=== PATIENT | female | born 1950 | race Caucasian/White ===

== ENCOUNTER → 2016-09-04 | Outpatient (CLI) | payer MEDICARE, OTHER ==
[~2016-09-04] MED LIST: ALLEGRA ALLERG180 MG PO; AMLODIPINE BESY10 MG PO; ARICEPT10 MG PO; ASPIR 8181 MG PO; ASPIRIN CHEWABL81 MG PO; BENTYL20 MG PO; CATAPRES 0.1MG0.1 MG PO; CEFTIN500 MG PO; COMBIVENT0.074 GM/I INH; COREG 3.125M3.125 MG PO; CYMBALTA60 MG PO; DIFLUCAN150 MG PO; EPIPEN 2-P0.3 MG/0.3 INJ; FEROSUL325 MG PO; FLONASE 0.05% N16 GM; FLUCONAZOLE150 MG PO; IBUPROFEN800 MG PO; IPRAT-ALBUT 0.5-3 ML INH; K-DUR TAB 10 M10 MEQ PO; K-DUR TAB 20 M20 MEQ PO; KEPPRA500 MG PO; KLONOPIN TAB 00.5 MG PO; LASIX40 MG PO; LISINOPRIL10 MG PO; LYRICA200 MG PO; MEDROL DOSEPAK 24 MG PO; MEDROL4 MG PO; MELATONIN5 M2 PO; MUCINEX600 MG PO; NITROSTAT 0.40.4 MG SL; OMEPRAZOLE20 M1 PO; OMNICEF 300 MG300 MG PO; OXYCODONE HCL15 MG PO; PROTONIX40 MG PO; RANITIDINE HCL300 MG PO; ROXICODONE15 MG PO; SYMBICORT 160-1 INHA INH; THERAGRAN M TAB1 EA PO; THERAPEUTIC M1 EAC1 PO; ZANTAC300 MG PO; ZESTRIL10 MG PO
== END ==
LOC: KOH-I 08:00
DX: F17.210 Nicotine dependence, cigarettes, uncomplicated (principal); R91.1 Solitary pulmonary nodule; J98.09 Other diseases of bronchus, not elsewhere classified
CPT/HCPCS: G0297

== ENCOUNTER 2016-09-27 10:52 | Inpatient (IN) | payer MEDICARE, OTHER ==
[~2016-09-27] VITALS: Ht 167.6 cm; Wt 50.8 kg
[~2016-09-27 10:52] MED LIST changes: -ASPIR 8181 MG PO; -CATAPRES 0.1MG0.1 MG PO; -COMBIVENT0.074 GM/I INH; -DIFLUCAN150 MG PO; -EPIPEN 2-P0.3 MG/0.3 INJ; -FLONASE 0.05% N16 GM; -IBUPROFEN800 MG PO; -K-DUR TAB 10 M10 MEQ PO; -KEPPRA500 MG PO; -LASIX40 MG PO; -MEDROL4 MG PO; -NITROSTAT 0.40.4 MG SL; -PROTONIX40 MG PO
[2016-09-27 11:54] LABS: HEMOGLOBIN 14.2 gm/dl (12.3-15.3); RED BLOOD COUNT 5.01 M/UL (4.00-5.10); WHITE BLOOD COUNT 2.6 K/UL (4.5-11.0)
[2016-09-27 12:21] LABS: BUN/CREATININE RATIO 23 (0-10)
[2016-09-27] MEDS ORDERED: ASPIR 8181 MG PO (17:01)
[2016-09-27] MEDS ORDERED: LASIX40 MG PO (17:01)
[2016-09-27] MEDS ORDERED: CATAPRES 0.1MG0.1 MG PO (17:02)
[2016-09-27] MEDS ORDERED: K-DUR TAB 10 M10 MEQ PO (17:03)
[2016-09-27] MEDS ORDERED: THERAPEUTIC M1 EAC1 PO (17:03)
[2016-09-27] MEDS ORDERED: PROTONIX40 MG PO (17:03)
[2016-09-27] MEDS ORDERED: IBUPROFEN800 MG PO (17:04)
[2016-09-27] MEDS ORDERED: COMBIVENT0.074 GM/I INH (17:05)
[2016-09-27] MEDS ORDERED: NITROSTAT 0.40.4 MG SL (17:05)
[2016-09-27] MEDS ORDERED: FLONASE 0.05% N16 GM (17:06)
[2016-09-27] MEDS ORDERED: EPIPEN 2-P0.3 MG/0.3 INJ (17:06)
[2016-09-28 06:42] LABS: HEMOGLOBIN 10.7 gm/dl (12.3-15.3); RED BLOOD COUNT 3.83 M/UL (4.00-5.10)
[2016-09-28 07:10] LABS: BUN/CREATININE RATIO 26 (0-10)
[2016-09-29 03:39] LABS: RED BLOOD COUNT 3.6 M/UL (4.00-5.10); WHITE BLOOD COUNT 9.6 K/UL (4.5-11.0)
[2016-09-29 04:03] LABS: BUN/CREATININE RATIO 32 (0-10)
[2016-09-30] MEDS ORDERED: KEPPRA500 MG PO (17:42)
[2016-10-01 05:05] LABS: HEMOGLOBIN 10.7 gm/dl (12.3-15.3); RED BLOOD COUNT 3.85 M/UL (4.00-5.10); WHITE BLOOD COUNT 7.4 K/UL (4.5-11.0)
[2016-10-01 05:17] LABS: BUN/CREATININE RATIO 30 (0-10)
[2016-10-02 05:09] LABS: HEMOGLOBIN 10.7 gm/dl (12.3-15.3); RED BLOOD COUNT 3.88 M/UL (4.00-5.10); WHITE BLOOD COUNT 5.7 K/UL (4.5-11.0)
[2016-10-02 05:21] LABS: BUN/CREATININE RATIO 34 (0-10)
[2016-10-04 04:55] LABS: BUN/CREATININE RATIO 41 (0-10)
[2016-10-04 04:58] LABS: HEMOGLOBIN 11.5 gm/dl (12.3-15.3); RED BLOOD COUNT 4.09 M/UL (4.00-5.10)
[2016-10-04 04:59] LABS: WHITE BLOOD COUNT 10.4 K/UL (4.5-11.0)
[2016-10-05 05:53] LABS: BUN/CREATININE RATIO 37 (0-10)
[2016-10-05] MEDS ORDERED: OMNICEF 300 MG300 MG PO ×2 (12:22→14:31)
[2016-10-05] MEDS ORDERED: DIFLUCAN150 MG PO (12:22)
[2016-10-05] MEDS ORDERED: MEDROL DOSEPAK 24 MG PO (12:23)
[2016-10-05] MEDS ORDERED: MEDROL4 MG PO (14:32)
== END 2016-10-05 15:20 | disposition home or self-care (01) | DRG 871 ==
LOC: ER1 10:52 → ZEROF 12:00 → M/S 12:00 → CCU 16:17 → M/S 10-01 21:30
PROVIDERS: Emergency Medicine; ADMIT Internal Medicine
DX: A41.51 Sepsis due to Escherichia coli [E. coli] (principal); J96.21 Acute and chronic respiratory failure with hypoxia; J18.9 Pneumonia, unspecified organism; J44.0 Chronic obstructive pulmonary disease with (acute) lower respiratory infection; J44.1 Chronic obstructive pulmonary disease with (acute) exacerbation; I50.32 Chronic diastolic (congestive) heart failure; R04.2 Hemoptysis; E87.2 Acidosis; K59.00 Constipation, unspecified; E87.6 Hypokalemia; B96.20 Unspecified Escherichia coli [E. coli] as the cause of diseases classified elsewhere; R65.20 Severe sepsis without septic shock; I25.10 Atherosclerotic heart disease of native coronary artery without angina pectoris; Z86.718 Personal history of other venous thrombosis and embolism; Z95.5 Presence of coronary angioplasty implant and graft; K21.9 Gastro-esophageal reflux disease without esophagitis; K58.9 Irritable bowel syndrome, unspecified; F41.9 Anxiety disorder, unspecified; F32.9 Major depressive disorder, single episode, unspecified; Z79.891 Long term (current) use of opiate analgesic; R53.1 Weakness; F17.210 Nicotine dependence, cigarettes, uncomplicated; Z87.01 Personal history of pneumonia (recurrent); Z79.899 Other long term (current) drug therapy; Z95.820 Peripheral vascular angioplasty status with implants and grafts; F03.90 Unspecified dementia, unspecified severity, without behavioral disturbance, psychotic disturbance, mood disturbance, and anxiety; Z88.0 Allergy status to penicillin; Z88.2 Allergy status to sulfonamides; Z88.6 Allergy status to analgesic agent; I25.2 Old myocardial infarction; R00.1 Bradycardia, unspecified; T44.7X5A Adverse effect of beta-adrenoreceptor antagonists, initial encounter; T46.5X5A Adverse effect of other antihypertensive drugs, initial encounter; Y92.230 Patient room in hospital as the place of occurrence of the external cause; Z88.8 Allergy status to other drugs, medicaments and biological substances; Z79.82 Long term (current) use of aspirin; Z79.51 Long term (current) use of inhaled steroids; Z79.1 Long term (current) use of non-steroidal anti-inflammatories (NSAID)
CPT/HCPCS: 36415; 36600; 71010; 71020; 80048; 80053; 80202; 82550; 82553; 82803; 83605; 83735; 83874; 83880; 84484; 85025; 85027; 85610; 85730; 87040; 87070; 87077; 87186; 87205; 93005; 94640; 94660; 94664; 94760; 97116; 97530; 97535; 99285; J0696; J1120; J1956; J2543; J3370; J7030; J7050; J7070